=== PATIENT | female | born 1995 | race Hispanic/Latino ===

== ENCOUNTER 2020-12-07 03:21 | Emergency (ER) | payer OTHER, SELFPAY | END 2020-12-07 05:06 | disposition home or self-care (01) | LOC: ERS 03:21 | DX: L02.411 Cutaneous abscess of right axilla (principal) | CPT/HCPCS: 10060 ==

== ENCOUNTER 2020-12-09 13:18 | Emergency (ER) | payer OTHER | END 2020-12-09 13:41 | disposition home or self-care (01) | LOC: ERS 13:18 | DX: Z48.817 Encounter for surgical aftercare following surgery on the skin and subcutaneous tissue (principal) | CPT/HCPCS: 99282 ==